=== PATIENT | male | born 1985 | race Caucasian/White ===

== ENCOUNTER 2018-04-03 21:12 | Emergency (ER) | payer OTHER ==
[~2018-04-03] VITALS: Ht 170.2 cm; Wt 77.7 kg
[2018-04-03 21:21] VITALS: Ht 170.2 cm; Wt 77.7 kg
[2018-04-04 01:11] VITALS: BP 123/77
== END 2018-04-04 01:11 | disposition home or self-care (01) ==
LOC: ED 21:12
DX: N20.1 Calculus of ureter (principal)
CPT/HCPCS: J1885; J2270; J2405; J7030

== ENCOUNTER 2019-05-13 05:11 | Inpatient (IN) | payer OTHER ==
[~2019-05-13] VITALS: Ht 177.8 cm; Wt 78.0 kg
[2019-05-13 05:17] VITALS: Ht 177.8 cm; Wt 78.0 kg
--- NOTE | 2019-05-13 05:30 | NUR ---
PATIENT AAOX4 PRESENTS TO THE ED WITH C/O ABD PAIN AND DIARRHEA SINCE LAST MONDAY. PATIENT DENIES ANY N/V-- BREATHING EVEN AND UNLABORED. SKIN WARM, DRY AND INTACT- NO OTHER SS OF DISTRESS NOTED. WILL CONTINUE TO MONITOR.
--- NOTE | 2019-05-13 06:25 | NUR ---
PATIENT TAKEN FOR CT SCAN- BREATHING EVEN AND UNLABORED. NO SS OF DISTRESS NOTED.
--- NOTE | 2019-05-13 07:10 | NUR ---
BACK FROM CT
--- NOTE | 2019-05-13 07:13 | NUR ---
REQUESTED URINE SAMPLE FROM PATIENT. HE STATED HE WILL ADVISE US SOON HE CAN GO. WILL MONITOR.
--- NOTE | 2019-05-13 07:13 | NUR ---
MEDICATED PER MD ORDERS
--- NOTE | 2019-05-13 07:16 | NUR ---
PROVIDED REPORT TO SINCERE ARECHIGA FOR CONTINUED CARE OF PATIENT.
--- NOTE | 2019-05-13 07:18 | NUR ---
PROVIDED REPORT TO SINCERE ARECHIGA FOR CONTINUED CARE OF PATIENT.
[2019-05-13 07:39] LABS: CALCIUM 9.1 mg/dL (8.5-10.1); CARBON DIOXIDE 23.5 mmol/L (21-32); CHLORIDE SERUM 106 mmol/L (98-107); CREATININE SERUM 0.7 mg/dL (0.7-1.3); GFR1 > 60 mL/min; GLUCOSE SERUM 111 mg/dL (74-106); POTASSIUM SERUM 4.5 mmol/L (3.5-5.1); SODIUM SERUM 142 mmol/L (136-145)
[2019-05-13 07:43] LABS: ALBUMIN 3.5 g/dL (3.4-5.0); ALKALINE PHOSPHATASE 181 U/L (46-116); ALT/SGPT 74 U/L (16-63); AST/SGOT 113 U/L (15-37); BILIRUBIN TOTAL 0.62 mg/dL (0.20-1.00); LIPASE 101 IU/L (73-393); TOTAL PROTEIN, SERUM 7.1 g/dL (6.4-8.2)
[2019-05-13 07:44] LABS: BASOPHIL % 0.3 % (0-2); PLATELET COUNT 248 x10^3mcL (130-400); RED CELL DISTRIBUTION WIDTH 13.1 % (11.5-14.5)
[2019-05-13 08:13] LABS: UA SPECIFIC GRAVITY 1.015 (1.005-1.035); microscopic required? YES; urine erythrocyte TRACE (NEGATIVE)
--- NOTE | 2019-05-13 08:16 | NUR ---
LORRAINE BEGUN ORDERED.
--- NOTE | 2019-05-13 08:30 | NUR ---
DR RICARDO AT BEDSIDE TO GO OVER PLAN OF CARE
--- NOTE | 2019-05-13 10:27 | NUR ---
PT ADMIT TO MS GAVE REPORT TO REYES GOING TO [facility] ROOM 240A
--- NOTE | 2019-05-13 11:02 | NUR ---
ASSUMED CARE OF PATIENT. ASSESSMENT CONDUCTED AND DOCUMENTED. PAGED FOR INDICATINO FOR ONE TIME DOSE OF HEPARIN. IVF INITIATED PER ORDERS. COMPLAINTS OF 2/10 ABDOMINAL PAIN, TOLERABLE. WILL CONTINUE TO MONITOR.
[2019-05-13 11:08] VITALS: BP 146/77
[2019-05-13 16:04] VITALS: BP 124/70
--- NOTE | 2019-05-13 17:51 | NUR ---
NO COMPLAINTS OF PAIN OR DISCOMFORT. RESTING COMFORTABLY IN BED WITH NO APPARENT DISTRESS OR DISCOMFORT. NO NEW ISSUES.
--- NOTE | 2019-05-13 18:22 | NUR ---
PER DR. RAMAN, PATIENT TO HAVE LAP [place] TOMORROW MORNING AT 7:30AM. ORDERS TO KEEP PATIENT NPO AT MIDNIGHT AND HOLD TONIGHT AND TOMOROW MORNINGS HEPARIN DOSE.
--- NOTE | 2019-05-13 19:57 | NUR ---
SHIFT REASSESSMENT DONE.PATIENT ALERT AND ORIENTED.NOT IN RESP DISTRESS.BREATHING EASY.MOVING ALL EXT WELL.LAC IV SITE IVFINFUSING LR ORDERED.MEDSURG PATIENT.SKIN INTACT.HOLD HEPARIN SQ TONIGHT AND AM,FOR LAP [place] IN AM.VOIDING.ABD PAIN,NONE AT THIS TIME.FAMILY AT BEDSIDE,SUPPORTIVE OF CARE.
[2019-05-13 20:55] VITALS: BP 119/69
--- NOTE | 2019-05-13 22:19 | NUR ---
PATIENT PM MEDS GIVEN.NPO AFTER MIDNIGHTLAP [place],NO OFFICIAL ORDER,WILL LET CHARGE NURSE JEREMY KNOW.
[2019-05-14 06:05] VITALS: BP 135/80
[2019-05-14 06:06] LABS: BASOPHIL % 1.3 % (0-2); PLATELET COUNT 249 x10^3mcL (130-400)
--- NOTE | 2019-05-14 06:23 | NUR ---
NPO,REMINDED.IVF INFUSING,NEW BAG.WILL ENDORSE TO NEXT SHIFT.
[2019-05-14 06:35] LABS: ALKALINE PHOSPHATASE 152 U/L (46-116); ALT/SGPT 203 U/L (16-63); AST/SGOT 107 U/L (15-37); BILIRUBIN TOTAL 0.29 mg/dL (0.20-1.00); CALCIUM 8.6 mg/dL (8.5-10.1); CARBON DIOXIDE 23.9 mmol/L (21-32); CHLORIDE SERUM 108 mmol/L (98-107); CREATININE SERUM 0.7 mg/dL (0.7-1.3); GFR1 > 60 mL/min; GLUCOSE SERUM 105 mg/dL (74-106); MAGNESIUM 1.9 mg/dL (1.8-2.4); POTASSIUM SERUM 3.9 mmol/L (3.5-5.1); SODIUM SERUM 144 mmol/L (136-145); TOTAL PROTEIN, SERUM 6.5 g/dL (6.4-8.2)
[2019-05-14 06:43] LABS: ALBUMIN 3.1 g/dL (3.4-5.0)
--- NOTE | 2019-05-14 06:59 | NUR ---
OR HERE TO PUNCH BOX TENDER PATIENT,REMINDED NO ORDER.CHECKLIST NOT DONE,NO CONESENT.
--- NOTE | 2019-05-14 07:00 | NUR ---
PATIENT BEEN NPO SINCE MIDNIGHT,CHECKLIST INITIATED,CONSENT SIGNED,DEVON DONE.PT GOWN INTACT,PATIENT VERY PLEASANT.
--- NOTE | 2019-05-14 07:04 | NUR ---
TO OR NOW.CHARGE NURSE AWARE.HEPLOCK INTACT,LAC.WILL ENDORSE TO NEXT SHIFT.
--- NOTE | 2019-05-14 08:28 | NUR ---
PT DOWN IN SURGERY. AWAITING FOR UPDATE AND ARRIVAL AT THIS TIME.
[2019-05-14 10:30] VITALS: BP 122/74
--- NOTE | 2019-05-14 11:45 | NUR ---
PT RESTING IN BED WITH NO APPARENT SIGNS OF DISTRESS. RESPIRTIONS EQUAL AND UNLABORED. ON RA, DENIES SOB. NO APPARENT SIGNS OF PAIN. BED IN LOW POSITION. CALL LIGHT IN REACH. WILL CONTINUE TO MONITOR
--- NOTE | 2019-05-14 15:45 | NUR ---
PT C/O OF PAIN, MEDICATED PER EMAR. RESPIRATIONS EQUAL AND UNLABORED. ON RA, DENIES SOB. BED IN LOW POSITION. CALL LIGHT IN REACH. WILL CONTINUE TO MONITOR
[2019-05-14 17:06] VITALS: BP 131/76
--- NOTE | 2019-05-14 18:05 | NUR ---
PT RESTING IN BED WITH NO APPARENT SIGNS OF DISTRESS. RESPIRATIONS EQUAL AND UNLABORED. ON RA, DENIES SOB. MEDSURG. DENIES CHEST PAIN/PRESSURE. AMBULATORY. ABDOMINAL INCIISON X4 WITH STERI STRIPS IN PLACE, KEVIN DRAIN SECURED IN PLACE WITH SANGRINOUS DRAINAGE. IV PATENT AND INTACT. BED IN LOW POSITION. CALL LIGHT IN REACH. WILL ENDORSE TO RADIO COMMUNICATION COORDINATOR RN
--- NOTE | 2019-05-14 19:20 | NUR ---
REC'D PT FROM DAY NURSE. FAMILY AT BEDSIDE. PT RESTING IN BED. AAOX4, SPEECH CLEAR, FOLLOWS COMMANDS. MED SURG, NO TELE. DENIES CP, DIZZINESS, OR PALPITATIONS. DENIES RESP DISTRESS OR SOB. BREATHING EVEN/UNLABORED ON RA. NO EDEMA NOTED. S/P LAP CHOL [place] POD #0. REPORTS ABD PAIN AND TENDERNESS 4-5/10, SHARP. TOLERABLE AT THIS TIME AND WOULD LIKE MORPHINE WITH NIGHT MEDS. PASSING GAS, NO BM. INFORMED OF NEED FOR STOOL SAMPLE. PT VERBALIZED UNDERSTANDING. INC X3 WITH STERI STRIPS, BANDAID TO LUQ, AND KEVIN TO R MID ABD DRAINING SEROSANGUINEOUS FLUID. AMBULATORY. IV TO LAC PATENT AND INFUSING, SITE WNL. CALL LIGHT WITHIN REACH, BED AT LOWEST POSITION. WILL CONTINUE TO MONITOR.
[2019-05-14 21:15] VITALS: BP 130/76
--- NOTE | 2019-05-14 21:19 | NUR ---
PT C/O 05/22 ABD PAIN. MORPHINE GIVEN PER ORDER. WILL MONITOR FOR RELIEF.
--- NOTE | 2019-05-14 22:00 | NUR ---
RECHECKED TEMP 100.0. COOLING MEASURES INITIATED.
--- NOTE | 2019-05-15 00:45 | NUR ---
PT RESTING IN BED WITH EYES CLOSED. NO SIGNS OF DISTRESS OR PAIN NOTED. BREATHING EVEN/UNLABORED ON RA. CALL LIGHT WITHIN REACH, BED AT LOWEST POSITION. WILL CONTINUE TO MONITOR.
--- NOTE | 2019-05-15 05:30 | NUR ---
PT AWAKE AND RESTING IN BED. REPORTS 4/10 ABD PAIN AND TENDERNESS, TOLERABLE AT THIS TIME AND DENIED PAIN MEDS. 60 ML SEROSANGUINEOUS FLUID OUT VIA KEVIN DRAIN. INCISIONS TO ABD WITH STERI STRIPS AND BANDAID CDI. NO BM BUT PASSING GAS. CALL LIGHT WITHIN REACH, BED AT LOWEST POSITION. WILL ENDORSE TO DAY NURSE.
[2019-05-15 06:24] LABS: BASOPHIL % 1.2 % (0-2); PLATELET COUNT 240 x10^3mcL (130-400); RED CELL DISTRIBUTION WIDTH 12.7 % (11.5-14.5)
[2019-05-15 06:26] VITALS: BP 121/77
[2019-05-15 06:41] LABS: ALKALINE PHOSPHATASE 131 U/L (46-116); ALT/SGPT 236 U/L (16-63); AST/SGOT 129 U/L (15-37); BILIRUBIN TOTAL 0.26 mg/dL (0.20-1.00); CALCIUM 8.7 mg/dL (8.5-10.1); CHLORIDE SERUM 110 mmol/L (98-107); CREATININE SERUM 0.8 mg/dL (0.7-1.3); GFR1 > 60 mL/min; GLUCOSE SERUM 104 mg/dL (74-106); MAGNESIUM 1.9 mg/dL (1.8-2.4); POTASSIUM SERUM 3.6 mmol/L (3.5-5.1); SODIUM SERUM 145 mmol/L (136-145)
[2019-05-15 06:52] LABS: ALBUMIN 2.8 g/dL (3.4-5.0); TOTAL PROTEIN, SERUM 5.9 g/dL (6.4-8.2)
--- NOTE | 2019-05-15 07:30 | NUR ---
PT ENDORSE TO ME THIS MORNING. SITTING UP IN BED, AA/O X4, BREATHING EVEN AND UNLABORED ON RA, NO ACUTE RESP DISTRESS OR SOB NOTED. MEDSURG, DENIES ANY CP OR PRESSURE. LAST BM 05/12, BOWEL SOUNGS ACTIVE IN ALL FOUR QUADS. VOIDS FREELY/ URINAL AT BEDSIDE. ABD INCISIONS X3 INTACT/STERI STRIPS/ BANDAIDS LUQ, KEVIN DRAIN TO R MID ABD INTACT AND DRAINING SEROSANGUINOUS NOTED. IV TO THE LAC INTACT AND PATENT AT 80 ML/ HR LR. DENIES ANY N/V. WILL CONTINUE TO MONITOR.
[2019-05-15 09:07] VITALS: BP 144/87
--- NOTE | 2019-05-15 09:32 | NUR ---
PT C/O ABD PAIN 10, MEDICATED PER EMAR. WILL CONTINUE TO MONITOR.
--- NOTE | 2019-05-15 13:45 | NUR ---
PT TOLERATED 100% OF LUNCH, DENIES ANY N/V AT THIS TIME. WILL CONTINUE TO MONITOR.
--- NOTE | 2019-05-15 15:50 | NUR ---
KEVIN DRAINED REMOVED TOLERATED WELL. 15ML OF SEROSANG OUTPUT NOTED/ PT MEDICATED PER EMAR FOR ABD DISCOMFORT.
[2019-05-15 16:20] VITALS: BP 132/80
--- NOTE | 2019-05-15 18:43 | NUR ---
NO ACUTE CHANGES AT THIS TIME, NO ACUTE RESP DISTRESS OR SOB NOTED. DENIES ANY ABD PAIN OR DISCOMFORT TO ABD INCISIONS X4, CDI. IS CURRENTLY MEDICATED PER EMAR. IV TO THE LAC INTACT AND PATENT INFUSING AT 80ML/HR LR/ TOLERATING WELL. WILL ENDORSE TO INCOMING RN.
--- NOTE | 2019-05-15 19:35 | NUR ---
AOX4. MED SURG. LUNGS CLEAR ON RA. PULSES PALPABLE. NO EDEMA. BOWEL SOUNDS ACTIVE. NO BM SINCE PRE OP. STATES IS PASSING GAS. VOIDS FREELY. AMBULATORY, ENCOURAGED AMBULATION. ABD LAP SITES X 3 WITH STERI STRIPS INTACT. REMOVED KEVIN DRAIN SITE DRESSING CDI. C/O INCISIONAL PAIN 12/23. IV TO LAC, PATENT AND INFUSING. BED IN LOWEST POSITION, 2 SIDE RAILS UP, CALL LIGHT IN REACH. INSTRUCTED TO CALL FOR ASSISTANCE.
[2019-05-15 20:45] VITALS: BP 142/88
--- NOTE | 2019-05-16 02:05 | NUR ---
RESTING IN BED WITH EYES CLOSED. BREATHING E/U. NO ACUTE DISTRESS NOTED. WILL CONTINUE TO MONITOR.
[2019-05-16 05:40] VITALS: BP 139/88
--- NOTE | 2019-05-16 06:14 | NUR ---
NO C/O ABD PAIN THIS AM. SURGICAL SITES REMAIN INTACT. WILL ENDORSE TO ONCOMING RN.
[2019-05-16 06:30] LABS: BASOPHIL % 0.5 % (0-2); PLATELET COUNT 244 x10^3mcL (130-400)
[2019-05-16 06:42] LABS: ALBUMIN 3.3 g/dL (3.4-5.0); ALKALINE PHOSPHATASE 189 U/L (46-116); ALT/SGPT 321 U/L (16-63); AST/SGOT 244 U/L (15-37); BILIRUBIN TOTAL 0.7 mg/dL (0.20-1.00); CALCIUM 8.7 mg/dL (8.5-10.1); CARBON DIOXIDE 26.2 mmol/L (21-32); CHLORIDE SERUM 105 mmol/L (98-107); CREATININE SERUM 0.7 mg/dL (0.7-1.3); GFR1 > 60 mL/min; GLUCOSE SERUM 104 mg/dL (74-106); MAGNESIUM 1.7 mg/dL (1.8-2.4); POTASSIUM SERUM 3.6 mmol/L (3.5-5.1); SODIUM SERUM 141 mmol/L (136-145); TOTAL PROTEIN, SERUM 6.8 g/dL (6.4-8.2)
--- NOTE | 2019-05-16 07:30 | NUR ---
PT ENDORSE TO ME THIS MORNING SITTING UP IN BED, AA/O X4. BREATHING EVEN AND UNLABORED ON RA, NO ACUTE RESP DISTRESS OR SOB NOTED. MEDSURG, DENIES ANY CP OR PRESSURE. VOIDS FREELY, AMB. ABD INCSIONS X 3 INTACT, STERI STRIPS NOTED. KEVIN INCISION INTACT, DRSG CDI/ DENIES ANY ABD PAIN OR DISCOMFORT. AMB. IV TO THE RFA INTACT AND PATENT NO REDNESS OR SWELLING NOTED. CALL LIGHT IN REACH. BED IN LOW POSITION WILL CONTINUE TO MONITOR.
[2019-05-16 08:13] VITALS: BP 137/86
[2019-05-16 11:38] VITALS: BP 137/86
[2019-05-16] MEDS ORDERED: TYLENOL WITH CO1 TA2 PO (11:46)
--- NOTE | 2019-05-16 13:00 | NUR ---
PT TOLERATED 100% OF LUNCH/ NO V/N NOTED.
--- NOTE | 2019-05-16 13:46 | NUR ---
EXPLAINED DISCHARGE INSTRUCTIONS, NEW MEDICATIONS AND FOLLOW UP APPT HE MUST MAKE WITH PRIMARY DOCTOR, PT AGREEED AND SIGNED ALL DOCUMENTS. REMOVED IV TO THE RFA, TOLERATED REMOVAL WELL. WAITING ON RIDE.
--- NOTE | 2019-05-16 14:00 | NUR ---
REYNALDO BOY WALKED PT DOWN TO FRONT OF HOSPITAL, HIS FATHER IS WAITING FOR HIM AND WILL DRIVE HIM HOME. PT BREATHING EVEN AND AND UNLABORED ON RA, DENIES ANY ABD PAIN OR PRESSURE. PT IS CLEAR ON ALL DISCHARGE INSTRUCTIONS AND APPT HE MUST MAKE WITH HIS PRIMARY DOC. PT DISCHARGE.
== END 2019-05-16 14:14 | disposition home or self-care (01) | DRG 419 ==
LOC: ED 05:11 → MU 09:15
PROVIDERS: Emergency Medicine; Surgery; ADMIT Internal Medicine Pulmonary Disease
PROC: 0FT44ZZ Resection of Gallbladder, Percutaneous Endoscopic Approach (ICD-10-PCS; principal; 2019-05-14 07:30)
DX: K80.62 Calculus of gallbladder and bile duct with acute cholecystitis without obstruction (principal); A08.4 Viral intestinal infection, unspecified
CPT/HCPCS: 87046; 87046-59; G0378; J0330; J0690; J0696; J1170; J1644; J1885; J2250; J2270; J2405; J2543; J2704; J2710; J3010; J3475; J3490; J7030; J7120